=== PATIENT | female | born 1970 | race Caucasian/White ===

== ENCOUNTER 2016-06-18 06:00 | Day surgery (SDC) | payer BC ==
[~2016-06-18] VITALS: Ht 154.9 cm; Wt 50.5 kg
[~2016-06-18 06:00] MED LIST: CYAN100063 PO; LACT1CAP80 PO; LEVO50TA11 PO
--- OUTSIDE RECORDS SUMMARY | 2016-06-18 06:03 | XMS REPORT | Continuity of Care Document ---
Author Author [facility] Organization [facility] Address Unknown Phone Unavailable Care Team Providers Care Plodding Machine Operator Name Role Phone Helen Mortensen Primary Care Physician [phone] Source Comments Some departments are not documenting in the electronic medical record. If you do not see the information that you expected, contact Release of Information in the Health Information Management department at [phone] for further assistance in locating additional records.[facility] Active Allergies and Adverse Reactions Allergen Noted Date Severity Reactions Comments Levofloxacin 01/25/2016 Medium RASH, ITCHING Sudafed 01/25/2016 Medium RASH, ITCHING Sulfa (Sulfonamide 01/25/2016 Low STOMACH UPSET Antibiotics) Current Medications Prescription Sig. Disp. Refills Start End Date Status Date levothyroxine (SYNTHROID) Take 50 mcg by mouth Active 50 mcg tablet daily 30 minutes before breakfast. CYANOCOBALAMIN (VITAMIN Take by mouth. Active B-12) (VITAMIN B-12 PO) Active Problems Problem Noted Date Recurrent malignant neoplasm of cervix (HCC) 01/25/2016 Cervical cancer, FIGO stage IB1 (HCC) 01/25/2016 Acquired hypothyroidism 01/25/2016 Hearing loss 01/25/2016 Social History Tobacco Use Types Packs/Day Years Used Date Never Smoker Alcohol Use Drinks/Week oz/Week Comments Yes 1 Cans of 0.6 beer Last Filed Vital Signs Vital Sign Reading Time Taken Blood Pressure 132/77 01/25/2016 11:40 AM BIRD TRAPPER Pulse 81 01/25/2016 11:40 AM BIRD TRAPPER Temperature 36.6 C (97.8 F) 01/25/2016 11:40 AM BIRD TRAPPER Respiratory Rate 16 01/25/2016 11:39 AM BIRD TRAPPER Height 1.565 m (5' 1.61") 01/25/2016 11:40 AM BIRD TRAPPER Weight 52.6 kg (115 lb 15.4 oz) 01/25/2016 11:40 AM BIRD TRAPPER Body Mass Index 21.48 01/25/2016 11:40 AM BIRD TRAPPER Oxygen Saturation 100% 01/25/2016 11:40 AM BIRD TRAPPER Plan of Care Health Maintenance Due Date Last Done Comments Physical (Comprehensive) 1976 Exam Pertussis Vaccine 1980 Tetanus Vaccine 1986 Cervical Cancer Screening 1990 Breast Cancer Screening 2009 Influenza Vaccine 11/08/2016 Results from Last 3 Months Not on file
--- OUTSIDE RECORDS SUMMARY | 2016-06-18 06:04 | XMS REPORT | Continuity of Care Document ---
Author Author [facility] Organization [facility] Address Unknown Phone Unavailable Support Name Relationship Address Phone MONIQUE RINCON MD Caregiver [address] [place] [address] Unavailable MAKENNA ALFARO MD Caregiver [phone] [place] [address] Unavailable SURY SARMIENTO Next Of Kin [address] [place], [place] [id number] Insurance Providers Guarantor Jair Monson Address [address] [place] [address] Email [email or web address] Payer [facility] Policy Number [id number] Subscriber's Name Jair Monson Relationship 18 Self Group Number [id number] Effective Date 13 Problems Active Problems Medical Problem Onset Date Status Atypical chest pain Unknown Acute CHEST PAIN, UNSPECIFIED Unknown Acute Dyspnea Unknown Acute Heart murmur Unknown Acute Liver lesion, left lobe Unknown Acute Stress at work Unknown Acute Medications Current Home Medications Medication Dose Units Route Directions Days Qty Instructions Start Date Cyanocobalamin (Vitamin B-12) Unknown Strength Tablet 1 Tab Oral Daily 05/02/11 Levothyroxine Sodium 50 Mcg Tablet 1 Tab Oral Daily 03/05/15 Mth/Me Blue/Salicy/Na Phos/Hyo (Urogesic-Blue Tablet) 1 Tab Tablet 1 Tab Oral Four Times Daily as needed for Bladder Discomfort 5 Days 20 Tablet 12/19/15 Nitrofurantoin Monohyd/M-Cryst (Nitrofurantoin Benson-Mcr 100 Mg) 100 Mg Capsule 100 Mg Oral Bedtime 1 Capsule 12/19/15 Tramadol Hcl 50 Mg Tablet 50 Mg Oral Every 4 Hours for Pain 40 Tablet Take 1 tablet, by mouth, every 4 hours. 12/19/15 Social History Social History Problem Response Recorded Date/Time Onset Date Status Hx Substance Use No 12/19/2015 7:28am Not Applicable Not Applicable Hx Alcohol Use No 12/19/2015 7:28am Not Applicable Not Applicable Has the pt used tobacco in the last 12 months No 12/19/2015 7:28am Not Applicable Not Applicable Hospital Discharge Instructions Current inpatient/outpatient. Discharge instructions are currently unavailable. Plan of Care Current inpatient/outpatient. The plan of care is currently unavailable Functional Status No functional status results. Allergies, Adverse Reactions, Alerts Allergen Type Severity Reaction Status Last Updated pseudoephedrine HCl Allergy Severe HIVES Active 03/05/15 Sulfa (Sulfonamide Antibiotics) Adverse Reaction Intermediate NAUSEA Active 03/05/15 Levofloxacin Allergy Mild ITCHY, REDNESS AT IV SITE Active 12/19/15 Immunizations Query Response on File Recorded Date/Time Hx Influenza Vaccination No 12/19/15 7:28am Hx Pneumococcal Vaccination No 12/19/15 7:28am Hx Influenza Vaccination No 12/19/15 7:28am Influenza Vaccine Hx NONE 03/05/15 10:47am Vital Signs Acute Vital Signs Vital Response Date/Time Temperature (Fahrenheit) 97.3 deg F (96.8 - 99.1) 12/19/2015 10:54am Temperature (Calculated Celsius) 36.99509 degrees C (36.0 - 37.3) 12/19/2015 10:54am Temperature Source Temporal 12/19/2015 10:54am Pulse Rate (adult) 86 bpm (60 - 100) 12/19/2015 12:25pm Respiratory Rate 15 breaths/min (10 - 20) 12/19/2015 12:25pm O2 Sat by Pulse Oximetry 99 % (90 - 100) 12/19/2015 12:25pm Oxygen Delivery Method Room Air 12/19/2015 12:25pm Oxygen Flow Rate 6.00 L/min 12/19/2015 11:10am Blood Pressure 145/71 mm Hg 12/19/2015 12:25pm Blood Pressure Source Automatic Cuff 12/19/2015 12:25pm Height (Feet) 5 feet 12/19/2015 7:11am Height (Inches) 1.00 inches 12/19/2015 7:11am Weight (Kilograms) 52.500 kg 12/19/2015 7:11am Body Mass Index (BMI) 21.9 12/19/2015 7:11am Results Laboratory Results Test Name Result Units Flags Reference Collection Date/Time Result Date/ Time Comments Neutrophils % (Manual) 61.0 % 33-66 02/06/2016 12:04pm 02/06/2016 12: 33pm Lymphocytes % (Manual) 32.0 % 23-45 02/06/2016 12:04pm 02/06/2016 12: 33pm Monocytes % (Manual) 6.0 % 0-9.0 02/06/2016 12:04pm 02/06/2016 12:33pm Reactive Lymphocytes % 1.0 % H 0-0 02/06/2016 12:04pm 02/06/2016 12: 33pm Absolute Neutrophils (Manual) 2.7 T/MM3 1.8-7.7 02/06/2016 12:04pm 12:33pm Lymphocytes # (Manual) 1.4 T/MM3 1-4.8 02/06/2016 12:04pm 02/06/2016 12 :33pm Monocytes # (Manual) 0.3 T/MM3 0-0.8 02/06/2016 12:04pm 02/06/2016 12: 33pm Reactive Lymphocytes # 0.0 T/MM3 0-0 02/06/2016 12:04pm 02/06/2016 12: 33pm Red Cell Morphology Comment NORMAL 02/06/2016 12:04pm 02/06/2016 12 :33pm Total Bilirubin 0.30 MG/DL 0.20-1.30 02/06/2016 12:04pm 02/06/2016 12: 17pm Alkaline Phosphatase 51 U/L 38-126 02/06/2016 12:04pm 02/06/2016 12: 17pm Total Protein 7.7 G/DL 6.3-8.2 02/06/2016 12:04pm 02/06/2016 12:17pm Albumin 4.2 G/DL 3.5-5.0 02/06/2016 12:04pm 02/06/2016 12:17pm Globulin 3.5 G/DL 2.4-3.6 02/06/2016 12:04pm 02/06/2016 12:17pm Albumin/Globulin Ratio 1.2 RATIO 1.1-2.2 02/06/2016 12:04pm 02/06/2016 12:17pm Aspartate Amino Transf (AST/SGOT) 23 U/L 14-36 02/06/2016 12:04pm 02/05 12:17pm Alanine Aminotransferase (ALT/SGPT) 28 U/L 9-52 02/06/2016 12:04pm 12:17pm White Blood Count 4.6 T/MM3 4.5-11.0 03/05/2016 11:46am 03/05/2016 11: 57am Red Blood Count 3.53 M/MM3 L 4.00-5.20 03/05/2016 11:46am 03/05/2016 11: 57am Hemoglobin 11.5 GM/DL L 12-16 03/05/2016 11:46am 03/05/2016 11:57am Hematocrit 34.9 % L 36-46 03/05/2016 11:46am 03/05/2016 11:57am Mean Corpuscular Volume 98.9 UM3 80-100 03/05/2016 11:46am 03/05/2016 11:57am Mean Corpuscular Hemoglobin 32.6 UUG 26-34 03/05/2016 11:46am 2015 11:57am Mean Corpuscular Hemoglobin Concent 33.0 GM/DL 31-37 03/05/2016 11:46am 03/05/2016 11:57am RDW Standard Deviation 46.2 FL 36.9-50.2 03/05/2016 11:46am 03/05/2016 11:57am Platelet Count 176 T/MM3 130-400 03/05/2016 11:46am 03/05/2016 11:57am Mean Platelet Volume 9.2 UM3 L 9.4-12.4 03/05/2016 11:46am 03/05/2016 11 :57am Neutrophils (%) (Auto) 75.3 % H 33-66 03/05/2016 11:46am 03/05/2016 11: 57am Lymphocytes (%) (Auto) 9.2 % L 23-45 03/05/2016 11:46am 03/05/2016 11: 57am Monocytes (%) (Auto) 7.7 % 0-9.0 03/05/2016 11:46am 03/05/2016 11:57am Eosinophils (%) (Auto) 7.0 % H 0-4 03/05/2016 11:46am 03/05/2016 11: 57am Basophils (%) (Auto) 0.4 % 0-2 03/05/2016 11:46am 03/05/2016 11:57am Immature Granulocyte % (Auto) 0.4 % 0.0-0.5 03/05/2016 11:46am 2015 11:57am Absolute Neutrophils (auto) 3.4 T/MM3 1.8-7.7 03/05/2016 11:46am 2015 11:57am Absolute Lymphocytes (auto) 0.4 T/MM3 L 1-4.8 03/05/2016 11:46am 2015 11:57am Absolute Monocytes (auto) 0.4 T/MM3 0-0.8 03/05/2016 11:46am 2015 11:57am Absolute Eosinophils (auto) 0.3 T/MM3 0-0.5 03/05/2016 11:46am 2015 11:57am Absolute Basophils (auto) 0.0 T/MM3 0-0.2 03/05/2016 11:46am 2015 11:57am Absolute Immature Granulocyte (auto 0.02 T/MM3 0.00-0.03 03/05/2016 11: 46am 03/05/2016 11:57am Icterus Index < 2 0-7 03/05/2016 11:46am 03/05/2016 12:10pm Chemistry Specimen Hemolysis < 15 0-25 03/05/2016 11:46am 03/05/2016 12:10pm 0-25: Specimen Exhibited No Hemolysis. Turbidity < 20 0-20 03/05/2016 11:46am 03/05/2016 12:10pm Sodium Level 137 MEQ/L 134-144 03/05/2016 11:46am 03/05/2016 12:10pm Potassium Level 4.1 MEQ/L 3.6-5 03/05/2016 11:46am 03/05/2016 12:10pm Chloride Level 102 MEQ/L 98-107 03/05/2016 11:46am 03/05/2016 12:10pm Carbon Dioxide Level 27 MEQ/L 22-30 03/05/2016 11:46am 03/05/2016 12: 10pm Anion Gap 8 MEQ/L 5-15 03/05/2016 11:46am 03/05/2016 12:10pm Blood Urea Nitrogen 13.0 MG/DL 7-17 03/05/2016 11:46am 03/05/2016 12: 10pm Creatinine 0.9 MG/DL 0.7-1.2 03/05/2016 11:46am 03/05/2016 12:10pm BUN/Creatinine Ratio 14 RATIO 6-26 03/05/2016 11:46am 03/05/2016 12: 10pm Glomerular Filtration Rate Calc 67 03/05/2016 11:46am 03/05/2016 12 :10pm Glucose Level 83 MG/DL 65-110 03/05/2016 11:46am 03/05/2016 12:10pm Calculated Osmolality 263 MOSM/KG 261-280 03/05/2016 11:46am 2015 12:10pm Calcium Level 9.2 MG/DL 8.4-10.2 03/05/2016 11:46am 03/05/2016 12:10pm Magnesium Level 2.0 MG/DL 1.6-2.3 03/05/2016 11:46am 03/05/2016 12: 10pm Name: JAIR MONSON Unit #: [id number] : 1970 Sex: F Admit Date: Loc / Svc: VIVIANE Discharge Date: DIAGNOSTIC IMAGING [id number]: ITS.REASON: C53.0 Malignant neoplasm of endocervix PROCEDURE: CT PELVIS W/O CONTRAST: Encounter: Subsequent Comparison: CT pelvis with contrast dated February 13, 2016 Technique: Axial CT imaging through the pelvis was performed with rectal contrast. No IV contrast was utilized. Coronal and sagittal two-dimensional reformats. Findings: Good distention of the rectum with contrast. Contrast is seen within the distal descending and sigmoid colon as well without evidence of focal stricture or obvious mass. Moderate stool. Left-sided double-J stent is seen in the visualized left ureter extending into the bladder. The prior hydroureter has improved. Bladder appears thin walled and normal. Small bowel dilatation seen on the comparison study has resolved. No discrete adenopathy seen within the pelvis currently. There is still suggestion of abnormal soft tissue in the left pelvic and perirectal area posterior to the bladder along the left distal ureter but this appears to be improved and is difficult to precisely measure. Bone windows are unchanged. Impression: Improved ileus or resolved partial small bowel obstruction. Interval decrease in size of the ill-defined left lower pelvic mass. . Procedures Procedure Status Date Provider(s) CT ABD & PELV 1/> REGNS Completed 12/11/15"INFUSION, NORMAL SALINE SOLUTION , 250 CC" Completed 12/11/15"LOW OSMOLAR CONTRAST MATERIAL, 300-399 MG/ML IODINE C Completed ROUTINE VENIPUNCTURE Completed 12/19/15 CYSTOSCOPY AND TREATMENT Completed 12/19/15 RODDY PEREZ MD CYSTO/URETERO STRICTURE TX Completed 12/19/15 RODDY PEREZ MD CYSTOURETERO W/BIOPSY Completed 12/19/15 RODDY PEREZ MD CONTRST X-RAY URINARY TRACT Completed 12/19/15 COMPREHEN METABOLIC PANEL Completed 12/19/15 COMPLETE CBC W/AUTO DIFF WBC Completed 12/19/15"STENT, NON-CORONARY, TEMPORARY, WITHOUT DELIVERY SYST Completed "INJECTION, CEFAZOLIN SODIUM, 500 MG" Completed 12/19/15"INJECTION, GARAMYCIN, GENTAMICIN, UP TO 80 MG" Completed 12/19/15"INJECTION, KETOROLAC TROMETHAMINE, PER 15 MG" Completed 12/19/15"INJECTION, LEVOFLOXACIN, 250 MG" Completed 12/19/15"INJECTION, NALOXONE HYDROCHLORIDE, PER 1 MG" Completed 12/19/15"INJECTION, ONDANSETRON HYDROCHLORIDE, PER 1 MG" Completed 12/19/15 PROPOFOL INJ 500 MG/50ML Completed 12/19/15 PROPOFOL INJ 500 MG/50ML Completed 12/19/15 PROPOFOL INJ 500 MG/50ML Completed 12/19/15 PROPOFOL INJ 500 MG/50ML Completed 12/19/15"INJECTION, FENTANYL CITRATE, 0.1 MG" Completed 12/19/15"INJECTION, FENTANYL CITRATE, 0.1 MG" Completed 12/19/15"INFUSION, NORMAL SALINE SOLUTION , 250 CC" Completed 12/19/155% DEXTROSE/WATER (500 ML=1 UNIT) Completed 10/11/16 306395"RINGERS LACTATE INFUSION, UP TO 1000 CC" Completed 12/19/15 861776"LOW OSMOLAR CONTRAST MATERIAL, 300-399 MG/ML IODINE C Completed PET IMAGE W/CT SKULL-THIGH Completed 12/27/15 [id number]"FLUORODEOXYGLUCOSE F-18 FDG, DIAGNOSTIC, PER STUDY DO Completed COMPREHEN METABOLIC PANEL Completed 01/23/16 COMPLETE CBC W/AUTO DIFF WBC Completed 01/23/16 CAT SCAN FOLLOW-UP STUDY Completed 01/30/16 ROUTINE VENIPUNCTURE Completed 02/06/16 COMPREHEN METABOLIC PANEL Completed 02/06/16 BL SMEAR W/DIFF WBC COUNT Completed 02/06/16 COMPLETE CBC AUTOMATED Completed 02/06/16 ROUTINE VENIPUNCTURE Completed 02/13/16 CT PELVIS W/DYE Completed 02/13/16 METABOLIC PANEL TOTAL CA Completed 02/13/16 ASSAY OF MAGNESIUM Completed 02/13/16 COMPLETE CBC W/AUTO DIFF WBC Completed 02/13/16 026969"INFUSION, NORMAL SALINE SOLUTION , 250 CC" Completed 02/13/16 032028"LOW OSMOLAR CONTRAST MATERIAL, 300-399 MG/ML IODINE C Completed Encounters Encounter Location Arrival/Admit Date Discharge/Depart Date Attending Provider Discharged [facility] 03/05/16 11:35am 03/09/16 11: 43pm KALEIGH LEES MD Registered [facility] 02/27/16 11:24am MAKENNA ALFARO MD Registered [facility] 02/13/16 7:17am MAKENNA ALFARO MD Registered [facility] 02/06/16 11:48am KALEIGH LEES MD Registered [facility] 01/30/16 11:58am MAKENNA ALFARO MD Registered [facility] 01/23/16 11:23am KALEIGH LEES MD Registered [facility] 12/27/15 8:01am RODDY PEREZ MD Dep[facility]ed [facility] 12/19/15 7:00am 12/19/15 12 :47pm RODDY PEREZ MD Registered [facility] 12/11/15 4:12pm MONIQUE RINCON MD
--- OUTSIDE RECORDS SUMMARY | 2016-06-18 06:04 | XMS REPORT | Continuity of Care Document ---
Author Author [facility] Organization [facility] Address Unknown Phone Unavailable Support Name Relationship Address Phone MONIQUE RINCON MD Caregiver [address] [address] [address] [place] [address] Unavailable MAKENNA ALFARO MD Caregiver [address] [facility] [place] [address] Unavailable SURY SARMIENTO Next Of Kin [address] [place], [place] [phone] Insurance Providers Guarantor Jair Monson Address [address] [place] [address] Email Payer [facility] Policy Number [id number] Subscriber's Name Jair Monson Relationship 18 Self Group Number [id number] Effective Date 13 Problems Active Problems Medical [...] Days 20 Tablet 12/19/15 Nitrofurantoin Monohyd/M-Cryst (Nitrofurantoin White-Mcr 100 Mg) 100 Mg Capsule 100 Mg [...] tobacco in the last 12 months No 03/30/2016 12:08pm Not Applicable Not Applicable Hospital Discharge Instructions Current inpatient/outpatient. Discharge instructions are currently unavailable. Plan of Care Current inpatient/outpatient. The plan of care is currently unavailable Functional Status No functional status results. Allergies, Adverse Reactions, Alerts Allergen Type Severity Reaction Status Last Updated pseudoephedrine HCl Allergy Severe HIVES Active 03/30/16 Sulfa (Sulfonamide Antibiotics) Adverse Reaction Intermediate NAUSEA Active 03/30/16 Levofloxacin Allergy Mild ITCHY, REDNESS AT IV SITE Active 03/30/16 Immunizations Query Response on File Recorded Date/Time Hx Influenza Vaccination Y fall 201503/30/16 12:08pm Hx Pneumococcal Vaccination No 03/30/16 12:08pm Hx Influenza Vaccination Y fall 201503/30/16 12:08pm Influenza Vaccine Hx NONE 03/05/15 10:47am Vital Signs Acute Vital Signs Vital Response Date/Time Temperature (Fahrenheit) 97.7 deg F (96.8 - 99.1) 03/31/2016 2:17pm Temperature (Calculated Celsius) 36.11030 degrees C (36.0 - 37.3) 03/31/2016 2:17pm Pulse Rate (adult) 88 bpm (60 - 100) 03/31/2016 2:17pm Respiratory Rate 20 breaths/min (10 - 20) 03/31/2016 2:17pm O2 Sat by Pulse Oximetry 100 % (90 - 100) 03/31/2016 2:17pm Oxygen Delivery Method Room Air 03/31/2016 2:17pm Blood Pressure 105/69 mm Hg 03/31/2016 2:17pm Blood Pressure Source Automatic Cuff 03/31/2016 2:17pm Height (Feet) 5 feet 03/30/2016 12:01pm Height (Inches) 5.00 inches 03/30/2016 12:01pm Weight (Kilograms) 50.000 kg 03/30/2016 12:01pm Body Mass Index (BMI) 18.3 03/30/2016 12:01pm Results Laboratory Results Test Name Result Units Flags Reference Collection Date/Time Result Date/ Time Comments White Blood Count 3.1 T/MM3 L 4.5-11.0 05/14/2016 11:40am 05/14/2016 11: 45am Red Blood Count 3.25 M/MM3 L 4.00-5.20 05/14/2016 11:40am 05/14/2016 11: 45am Hemoglobin 11.3 GM/DL L 12-16 05/14/2016 11:40am 05/14/2016 11:45am Hematocrit 34.1 % L 36-46 05/14/2016 11:40am 05/14/2016 11:45am Mean Corpuscular Volume 104.9 UM3 H 80-100 05/14/2016 11:40am 2016 11:45am Mean Corpuscular Hemoglobin 34.8 UUG H 26-34 05/14/2016 11:40am 2016 11:45am Mean Corpuscular Hemoglobin Concent 33.1 GM/DL 31-37 05/14/2016 11:40am 05/14/2016 11:45am RDW Standard Deviation 52.4 FL H 36.9-50.2 05/14/2016 11:40am 2016 11:45am Platelet Count 229 T/MM3 130-400 05/14/2016 11:40am 05/14/2016 11:45am Mean Platelet Volume 9.4 UM3 9.4-12.4 05/14/2016 11:40am 05/14/2016 11: 45am Neutrophils (%) (Auto) 55.8 % 33-66 05/14/2016 11:40am 05/14/2016 11: 45am Lymphocytes (%) (Auto) 22.9 % L 23-45 05/14/2016 11:40am 05/14/2016 11: 45am Monocytes (%) (Auto) 12.6 % H 0-9.0 05/14/2016 11:40am 05/14/2016 11: 45am Eosinophils (%) (Auto) 7.4 % H 0-4 05/14/2016 11:40am 05/14/2016 11: 45am Basophils (%) (Auto) 1.0 % 0-2 05/14/2016 11:40am 05/14/2016 11:45am Immature Granulocyte % (Auto) 0.3 % 0.0-0.5 05/14/2016 11:40am 2016 11:45am Absolute Neutrophils (auto) 1.7 T/MM3 L 1.8-7.7 05/14/2016 11:40am 05/14 11:45am Absolute Lymphocytes (auto) 0.7 T/MM3 L 1-4.8 05/14/2016 11:40am 2016 11:45am Absolute Monocytes (auto) 0.4 T/MM3 0-0.8 05/14/2016 11:40am 2016 11:45am Absolute Eosinophils (auto) 0.2 T/MM3 0-0.5 05/14/2016 11:40am 2016 11:45am Absolute Basophils (auto) 0.0 T/MM3 0-0.2 05/14/2016 11:40am 2016 11:45am Absolute Immature Granulocyte (auto 0.01 T/MM3 0.00-0.03 05/14/2016 11: 40am 05/14/2016 11:45am Neutrophils % (Manual) 37.0 % 33-66 04/03/2016 11:22am 04/03/2016 11: 48am Band Neutrophils % 38.0 % H 0-6 04/03/2016 11:am 04/03/2016 11:48am Lymphocytes % (Manual) 19.0 % L 23-45 04/03/2016 11:am 04/03/2016 11: 48am Monocytes % (Manual) 3.0 % 0-9.0 04/03/2016 11:am 04/03/2016 11:48am Eosinophils % (Manual) 3.0 % 0-4 04/03/2016 11:am 04/03/2016 11:48am Band Neutrophils # 2.8 T/MM3 04/03/2016 11:am 04/03/2016 11:48am Absolute Neutrophils (Manual) 2.7 T/MM3 1.8-7.7 04/03/2016 11:22am 11:48am Lymphocytes # (Manual) 1.4 T/MM3 1-4.8 04/03/2016 11:22am 04/03/2016 11 :48am Monocytes # (Manual) 0.2 T/MM3 0-0.8 04/03/2016 11:22am 04/03/2016 11: 48am Eosinophils # (Manual) 0.2 T/MM3 0-0.5 04/03/2016 11:22am 04/03/2016 11 :48am Red Cell Morphology Comment NORMAL 04/03/2016 11:22am 04/03/2016 11 :48am Icterus Index < 2 0-7 03/26/2016 11:3703/26/2016 12:14pm Chemistry Specimen Hemolysis < 15 0-25 03/26/2016 11:3703/26/2016 12:14pm 0-25: Specimen Exhibited No Hemolysis. Turbidity < 20 0-20 03/26/2016 11:37am 03/26/2016 12:14pm Sodium Level 137 MEQ/L 134-144 03/26/2016 11:3703/26/2016 12:14pm Potassium Level 4.3 MEQ/L 3.6-5 03/26/2016 11:37am 03/26/2016 12:14pm Chloride Level 99 MEQ/L 98-107 03/26/2016 11:37am 03/26/2016 12:14pm Carbon Dioxide Level 27 MEQ/L 22-30 03/26/2016 11:37am 03/26/2016 12: 14pm Anion Gap 11 MEQ/L 5-15 03/26/2016 11:37am 03/26/2016 12:14pm Blood Urea Nitrogen 14.0 MG/DL 7-17 03/26/2016 11:37am 03/26/2016 12: 14pm Creatinine 0.9 MG/DL 0.7-1.2 03/26/2016 11:37am 03/26/2016 12:14pm BUN/Creatinine Ratio 16 RATIO 6-26 03/26/2016 11:37am 03/26/2016 12: 14pm Glomerular Filtration Rate Calc 67 03/26/2016 11:3703/26/2016 12 :14pm Glucose Level 81 MG/DL 65-110 03/26/2016 11:3703/26/2016 12:14pm Calculated Osmolality 264 MOSM/KG 261-280 03/26/2016 11:37am 2016 12:14pm Calcium Level 9.2 MG/DL 8.4-10.2 03/26/2016 11:37am 03/26/2016 12:14pm Total Bilirubin 0.40 MG/DL 0.20-1.30 03/19/2016 11:56am 03/19/2016 12: 12pm Alkaline Phosphatase 59 U/L 38-126 03/19/2016 11:56am 03/19/2016 12: 12pm Total Protein 7.1 G/DL 6.3-8.2 03/19/2016 11:56am 03/19/2016 12:12pm Albumin 4.0 G/DL 3.5-5.0 03/19/2016 11:56am 03/19/2016 12:12pm Globulin 3.1 G/DL 2.4-3.6 03/19/2016 11:56am 03/19/2016 12:12pm Albumin/Globulin Ratio 1.3 RATIO 1.1-2.2 03/19/2016 11:56am 03/19/2016 12:12pm Aspartate Amino Transf (AST/SGOT) 24 U/L 14-36 03/19/2016 11:56am 03/19 12:12pm Alanine Aminotransferase (ALT/SGPT) 25 U/L 9-52 03/19/2016 11:56am 12/2016 12:12pm Magnesium Level 2.1 MG/DL 1.6-2.3 05/14/2016 11:40am 05/14/2016 11: 54am Procedures Procedure Status Date Provider(s) Routine venipuncture Completed 02/20/16 Metabolic panel total ca Completed 02/20/16 Assay of magnesium Completed 02/20/16 Complete cbc w/auto diff wbc Completed 02/20/16 Routine venipuncture Completed 02/20/16 Metabolic panel total ca Completed 02/20/16 Assay of magnesium Completed 02/20/16 Complete cbc w/auto diff wbc Completed 02/20/16 Routine venipuncture Completed 02/20/16 Metabolic panel total ca Completed 02/20/16 Assay of magnesium Completed 02/20/16 Complete cbc w/auto diff wbc Completed 02/20/16 Ct pelvis w/o dye Completed 02/27/16 Cat scan follow-up study Completed 03/28/16 Ct pelvis w/dye Completed 04/30/16 386952"INFUSION, NORMAL SALINE SOLUTION , 250 CC" Completed 04/30/16 136387"LOW OSMOLAR CONTRAST MATERIAL, 300-399 MG/ML IODINE C Completed 091829"LOW OSMOLAR CONTRAST MATERIAL, 300-399 MG/ML IODINE C Completed Breast tomosynthesis bi Completed 05/08/16 328821"SCREENING MAMMOGRAPHY, PRODUCING DIRECT DIGITAL IMAGE Completed Encounters Encounter Location Arrival/Admit Date Discharge/Depart Date Attending Provider Registered [facility] 05/14/16 11:37am KALEIGH LEES MD Registered [facility] 05/14/16 11:26am MAKENNA ALFARO MD Registered [facility] 05/08/16 11:24am HELENE PHILLIPS MD Registered [facility] 04/30/16 10:31am MAKENNA ALFARO MD Discharged [facility] 03/31/16 8:45am 05/15/16 11:59pm KALEIGH LEES MD Registered [facility] 03/28/16 11:21am MAKENNA ALFARO MD Registered [facility] 02/27/16 11:24am MAKENNA ALFARO MD Discharged [facility] 02/20/16 11:33am 03/09/16 11: 43pm KALEIGH LEES MD
--- OUTSIDE RECORDS SUMMARY | 2016-06-18 06:04 | XMS REPORT | Continuity of Care Document ---
Author Author [facility] Organization [facility] Address Unknown Phone Unavailable Support Name Relationship Address Phone RODDY DE LA CRUZ MD Caregiver [address] [place] [address] Unavailable MONIQUE RINCON MD Caregiver [address] [place] [address] Unavailable SURY SARMIENTO Next Of Kin [address] [place] [address] Insurance Providers Guarantor Jair Monson Address [address] [place] [address] Email [email or web address] Payer [facility] Policy Number [id number] Subscriber's Name Jair Monson Relationship 18 Self Group Number [id number] Effective Date 13 Advance Directives Directive Response Recorded Date/Time Dr Black Resuscitation Status Full Code 12/18/15 1:55pm Resuscitation Documents on File Yes 12/19/15 7:46am DPOA for Healthcare Only Yes 12/19/15 7:46am Living Will No 12/19/15 7:46am Advanced Directive or Resuscitation Comments FULL CODE 12/19/15 7:46am Problems Active Problems Medical Problem Onset Date [...] Bladder Discomfort 5 Days 20 Tablet 12/19/15 Tramadol Hcl 50 Mg Tablet 50 Mg Oral Every 4 Hours for Pain 40 Tablet Take 1 tablet, by mouth, every 4 hours. 12/19/15 Social History Social History Problem Response Recorded Date/Time Onset Date Status Reason for Hospitalization cystoscopy with possible stent insertion 2015 11:44am Not Applicable Not Applicable Chewing Tobacco Status No 12/19/2015 7:28am Not Applicable Not Applicable Hx Substance Use No 12/19/2015 7:28am Not Applicable Not Applicable Hx Alcohol Use No 12/19/2015 7:28am Not Applicable Not Applicable Has the pt used tobacco in the last 12 months No 12/19/2015 7:28am Not Applicable Not Applicable Query Response Start Date Stop Date Smoking Status Never smoker Hospital Discharge Instructions Instructions: Care Instructions: I was in the hospital because (patient own words): CYSTOSCOPY Discharge Diet: regular Discharge Activity: as Tolerated Follow Up Appointments: Call for appointment to be seen on 12/22/2015 in [facility] office. Pending Lab / Results: Will review at f/u apt Expected Signs/Symptoms: Increased urgency and frequency to void, burning on urination, occassional blood in urine and pain in the left flank when straining and/or urinating. Notify Physician If: fever >100.5 During Business Hours:: Please call the physician's office After Business Hours:: Please call [phone] and have the compound machine operator page the physician. Pain Management/Treatment: ibuprofen, tylenol and/or tramadol as needed Wound/Incision Care: NA Condition at time of discharge: Good Plan of Care Discharge Date 12/19/15 12:47pm Instructions/Education Provided [facility] Prescriptions See Medication Section Functional Status No functional status results. Allergies, [...] - 99.1) 12/19/2015 10:54am Temperature (Calculated Celsius) 36.92138 degrees C (36.0 - 37.3) 12/19/2015 10:54am [...] Result Date/ Time Comments White Blood Count 5.2 T/MM3 4.5-11.0 12/19/2015 7:4212/19/2015 8: 17am Red Blood Count 3.86 M/MM3 L 4.00-5.20 12/19/2015 7:4212/19/2015 8: 17am Hemoglobin 12.3 GM/DL 12-16 12/19/2015 7:4212/19/2015 8:17am Hematocrit 37.9 % 36-46 12/19/2015 7:4212/19/2015 8:17am Mean Corpuscular Volume 98.2 UM3 80-100 12/19/2015 7:4212/19/2015 8: 17am Mean Corpuscular Hemoglobin 31.9 UUG 26-34 12/19/2015 7:422015 8:17am Mean Corpuscular Hemoglobin Concent 32.5 GM/DL 31-37 12/19/2015 7:4212/19/2015 8:17am RDW Standard Deviation 45.3 FL 36.9-50.2 12/19/2015 7:4212/19/2015 8 :17am Platelet Count 230 T/MM3 130-400 12/19/2015 7:42am 12/19/2015 8:17am Mean Platelet Volume 10.8 UM3 9.4-12.4 12/19/2015 7:42am 12/19/2015 8: 17am Neutrophils (%) (Auto) 57.4 % 33-66 12/19/2015 7:42am 12/19/2015 8: 17am Lymphocytes (%) (Auto) 31.7 % 23-45 12/19/2015 7:42am 12/19/2015 8: 17am Monocytes (%) (Auto) 8.3 % 0-9.0 12/19/2015 7:42am 12/19/2015 8:17am Eosinophils (%) (Auto) 1.4 % 0-4 12/19/2015 7:4212/19/2015 8:17am Basophils (%) (Auto) 1.0 % 0-2 12/19/2015 7:42am 12/19/2015 8:17am Immature Granulocyte % (Auto) 0.2 % 0.0-0.5 12/19/2015 7:42am 2015 8:17am Absolute Neutrophils (auto) 3.0 T/MM3 1.8-7.7 12/19/2015 7:42am 2015 8:17am Absolute Lymphocytes (auto) 1.6 T/MM3 1-4.8 12/19/2015 7:42am 2015 8:17am Absolute Monocytes (auto) 0.4 T/MM3 0-0.8 12/19/2015 7:42am 12/19/2015 8:17am Absolute Eosinophils (auto) 0.1 T/MM3 0-0.5 12/19/2015 7:42am 2015 8:17am Absolute Basophils (auto) 0.1 T/MM3 0-0.2 12/19/2015 7:4212/19/2015 8:17am Absolute Immature Granulocyte (auto 0.01 T/MM3 0.00-0.03 12/19/2015 7: 42am 12/19/2015 8:17am Icterus Index < 2 0-7 12/19/2015 7:42am 12/19/2015 8:28am Chemistry Specimen Hemolysis 35 H 0-25 12/19/2015 7:42am 12/19/2015 8: 28am 26-70: Specimen Exhibited Slight Hemolysis - can falsely elevate K (Potassium) and Urine Protein. Turbidity < 20 0-20 12/19/2015 7:42am 12/19/2015 8:28am Sodium Level 141 MEQ/L 134-144 12/19/2015 7:4212/19/2015 8:28am Potassium Level 4.3 MEQ/L 3.6-5 12/19/2015 7:42am 12/19/2015 8:28am Chloride Level 104 MEQ/L 98-107 12/19/2015 7:4212/19/2015 8:28am Carbon Dioxide Level 27 MEQ/L 22-30 12/19/2015 7:42am 12/19/2015 8: 28am Anion Gap 10 MEQ/L 5-15 12/19/2015 7:42am 12/19/2015 8:28am Blood Urea Nitrogen 19.0 MG/DL H 7-17 12/19/2015 7:42am 12/19/2015 8: 28am Creatinine 1.1 MG/DL 0.7-1.2 12/19/2015 7:4212/19/2015 8:28am BUN/Creatinine Ratio 17 RATIO 6-26 12/19/2015 7:4212/19/2015 8:28am Glomerular Filtration Rate Calc 53 12/19/2015 7:4212/19/2015 8: 28am Glucose Level 91 MG/DL 65-110 12/19/2015 7:4212/19/2015 8:28am Calculated Osmolality 273 MOSM/KG 261-280 12/19/2015 7:4212/19/2015 8:28am Calcium Level 9.1 MG/DL 8.4-10.2 12/19/2015 7:4212/19/2015 8:28am Total Bilirubin 0.60 MG/DL 0.20-1.30 12/19/2015 7:4212/19/2015 8: 28am Alkaline Phosphatase 50 U/L 38-126 12/19/2015 7:4212/19/2015 8:28am Total Protein 7.5 G/DL 6.3-8.2 12/19/2015 7:42am 12/19/2015 8:28am Albumin 4.1 G/DL 3.5-5.0 12/19/2015 7:42am 12/19/2015 8:28am Globulin 3.4 G/DL 2.4-3.6 12/19/2015 7:42am 12/19/2015 8:28am Albumin/Globulin Ratio 1.2 RATIO 1.1-2.2 12/19/2015 7:42am 12/19/2015 8 :28am Aspartate Amino Transf (AST/SGOT) 25 U/L 14-36 12/19/2015 7:42am 2015 8:28am Alanine Aminotransferase (ALT/SGPT) 17 U/L 9-52 12/19/2015 7:42am 12/18 8:28am Name: JAIR MONSON Unit #: [id number] : 1970 Sex: F Admit Date: Loc / Svc: SCU Discharge Date: DIAGNOSTIC IMAGING REPORT Report #: [id number] [facility] Indication: ITS.REASON: ANMOL RETROGRADE, abnormal recent CT PROCEDURE: RF RETROGRADE PYELOGRAM BILAT.: Encounter: Initial Comparison: Renal CT dated December 11, 2015 Findings: 24 fluoroscopic spot images are submitted for interpretation. Images show retrograde injection of contrast into the left ureter. This shows a severely dilated distal ureter near the bladder with evidence of a tight stricture in the proximal to midportion with slightly irregular margins with tortuosity in this location as well. A catheter was able to be advanced through this area of narrowing. No extravasation of contrast identified. Retrograde injection of contrast was then performed into the right ureter which shows a normal course and caliber. Mild blunting of the right renal calyces. An angioplasty device is deployed in the area of the left distal ureteral stricture followed by placement of a left-sided double-J stent. Impression: Evidence of left distal ureteral partial obstruction and a proximal ureteral stricture. Findings were discussed with Dr. De La Cruz in the procedure room at the time of the exam. Fluoroscopy time is five minutes and six seconds. Fluoroscopy dose is 4970 mRad. . Procedures Procedure Status Date Provider(s) Cystoscopic insertion of ureteral stent Completed 12/19/15 RODDY DE LA CRUZ MD Encounters Encounter Location Arrival/Admit Date Discharge/Depart Date Attending Provider Departed [facility] 12/19/15 7:00am 12/19/15 12 :47pm RODDY DE LA CRUZ MD Registered [facility] 12/11/15 4:12pm MONIQUE RINCON MD
[2016-06-18 06:26] VITALS: Ht 154.9 cm; Wt 50.5 kg
[2016-06-18 06:27] VITALS: BP 121/78; PULSE 81; RESP 13; TEMP 98.1; O2SAT 100
[2016-06-18 06:38] LABS: BASOPHILS % (AUTO) 0.4 % (0-2); EOSINOPHILS # (AUTO) 0.2 T/MM3 (0-0.5); EOSINOPHILS % (AUTO) 3.2 % (0-4); HCT - HEMATOCRIT 34.4 % (36-46); HGB - HEMOGLOBIN 11.1 GM/DL (12-16); IMMATURE GRANULOCYTE # (AUTO) 0.02 T/MM3 (0.00-0.03); IMMATURE GRANULOCYTE % (AUTO) 0.4 % (0.0-0.5); LYMPHOCYTES # (AUTO) 0.7 T/MM3 (1-4.8); LYMPHOCYTES % (AUTO) 15.1 % (23-45); MEAN CORPUSCULAR HGB CONC(MCHC 32.3 GM/DL (31-37); MEAN CORPUSCULAR VOLUME 105.5 UM3 (80-100); MEAN PLATELET VOLUME 9.6 UM3 (9.4-12.4); MONOCYTES # (AUTO) 0.4 T/MM3 (0-0.8); MONOCYTES % (AUTO) 8.7 % (0-9.0); NEUTROPHILS #(AUTO)-ABSOLUTE 3.4 T/MM3 (1.8-7.7); NEUTROPHILS % (AUTO) 72.2 % (33-66); RED BLOOD COUNT 3.26 M/MM3 (4.00-5.20); WBC - WHITE BLOOD COUNT 4.7 T/MM3 (4.5-11.0)
[2016-06-18 06:47] LABS: ALBUMIN 3.9 G/DL (3.5-5.0); ALBUMIN/GLOBULIN RATIO 1.2 RATIO (1.1-2.2); ALKALINE PHOSPHATASE 65 U/L (38-126); ALT (SGPT) 28 U/L (9-52); ANION GAP 12 MEQ/L (5-15); AST (SGOT) 26 U/L (14-36); BUN/CREATININE RATIO 12 RATIO (6-26); CALCIUM 9.1 MG/DL (8.4-10.2); CHLORIDE 106 MEQ/L (98-107); CO2 - CARBON DIOXIDE 28 MEQ/L (22-30); GLOMERULAR FILTRATION RATE 59; GLUCOSE 90 MG/DL (65-110); POTASSIUM 3.6 MEQ/L (3.6-5); SODIUM 146 MEQ/L (134-144); TOTAL PROTEIN 7.2 G/DL (6.3-8.2)
--- NOTE | 2016-06-18 06:47 | ANESPREOP ---
Anesthesia Record Date and Time DATE: 06/18/16 TIME: 06:45 Proposed Surgical Procedure CYSTOSCOPY, STENT REMOVAL AND POSS. URETERAL BX Allergies: Coded Allergies: pseudoephedrine HCl (Verified Allergy, Severe, HIVES, 03/30/16) levofloxacin (Verified Allergy, Mild, ITCHY, REDNESS AT IV SITE, 03/30/16) Sulfa (Sulfonamide Antibiotics) (Verified Adverse Reaction, Intermediate, NAUSEA, 03/30/16) Ht/Wt/BMI Height: 5 ' 1.00 " Weight: 50.500 kg BMI: 21.0 kg/m2 Vital Signs Date Time Temp Pulse Resp B/P Pulse Ox O2 Delivery O2 Flow Rate FiO2 06/18/16 06:27 98.1 81 13 121/78 100 Room Air Medications Inpatient Medications Current Medications Medications (Trade) Dose Ordered Sig/Tori Start Time Stop Time Status Last Admin Dose Admin Lactated Ringer's (Lactated Ringers) 1,000 ml @ 30 mls/hr Q24H 06/18/16 07:00 Cyanocobalamin (Vitamin B-12) Unknown Strength Tablet, 1 TAB PO DAILY, (Reported ) Lactobacillus Combo No.10 (Probiotic) 1 Each Capsule, 1 CAP PO DAILY, (Reported) Levothyroxine Sodium (Levothyroxine Sodium) 50 Mcg Tablet, 1 TAB PO DAILY, ( Reported) Currently on Beta Seven: No Medical/Surgical History Anesthesia PMH: Reports: *Angina (HX OF-STRESS RELATED LAST WAS FEB 2015; since resolved), Cancer (HX OF CERVICAL), Reflux (no symptoms this am per pt), Thyroid Disease (THYROID NODULE) Smoking Status: Never smoker Use Chewing Tobacco?: No Second Hand Exposure: No Substance Use Type: does not use Alcohol Intake: rarely HX of Last Menstrual Period: 2000-. Past Surgical History Orthopedic Surgeries: Abdominal Surgeries: No Genitourinary Surgeries: Yes - LITHO (NO STONES) Cardiac Surgeries: No Endocrine Surgeries: Reproductive Surgeries: Yes - RAVH; COLPOSCOPY; ENDOMETRIAL BX;REMOVAL CVX CA, DX LAP Neurological Surgeries: Ear Surgeries: Nose Surgeries: Throat Surgeries: Other Surgeries: Yes - C-SCOPE,EGD'S Anesthesia Adverse Reactions: FOUND nausea and vomiting (TIVA with last cysto- denies N/V) Pertinent Findings Laboratory Tests 06/18/16 06:31 EKG Rhythm: Sinus Rhythm Physical Exam Respiratory: Bilat breath sounds equal, Lungs clear Cardiovascular: FOUND Regular rate, rhythm Airway Assessment Mallampati Score: I TMD: 3 Fingerbreadths Neck Extension: Good Overall Assessment: No Airway Concerns ASA: 2 Plan Anesthesia Plan: TIVA Discussion Discussed risks/options/alternatives of anesthesia and questions answered. Patient consents. Nursing pain assessment noted. Attestation Statement Prior to the delivery of any anesthetic medication, I examined the patient, developed the plan, obtained the patient's consent and discussed the risk and benefits of the procedure with the patient/guardian. SALONI MCCRAY Jun 18, 2016 06:47
[2016-06-18] MEDS ORDERED: IOHEXOL 300 MG/ML 50ml INJECTION ONE (06:57)
[2016-06-18] MEDS ORDERED: GENTAMICIN 80 MG/2 ML INJECTION ONE (06:57)
[2016-06-18] MEDS ORDERED: PROPOFOL 500mg 50 ML IV ONE (06:59)
[2016-06-18] MEDS ORDERED: LR 1,000 ML IV SCH (07:00)
[2016-06-18] MEDS ORDERED: LIDOCAINE 1% (10mg/ml) 2ml SDV INJ ONE (07:00)
[2016-06-18] MEDS ORDERED: FENTANYL 100mcg/2ml INJECTION ONE (07:02)
[2016-06-18] MEDS ORDERED: ONDANSETRON 4mg/2ml INJECTION ONE (07:03)
[2016-06-18] MEDS ORDERED: PROPOFOL 200mg 20 ML IV ONE (07:07)
[2016-06-18] MEDS ORDERED: DOCU-168 PO (07:10)
[2016-06-18] MEDS ORDERED: CEFAZOLIN 1 GRAM INJECTION IV ONE (07:30)
[2016-06-18 07:57] VITALS: BP 127/78; PULSE 84; RESP 12; TEMP 97.1; O2SAT 97
[2016-06-18] MEDS ORDERED: NORMAL SALINE 1,000 ML IV SCH (07:57)
[2016-06-18] MEDS ORDERED: MORPHINE SULFATE 4 MG SYRINGE IV PRN (08:00)
[2016-06-18] MEDS ORDERED: ONDANSETRON 4mg/2ml INJECTION IV PRN (08:00)
[2016-06-18] MEDS ORDERED: PHENAZOPYRIDINE 95 MG TABLET PO PRN (08:00)
[2016-06-18] MEDS ORDERED: HYDROCODONE/APAP 5 mg/325 mg TABLET PO PRN (08:00)
[2016-06-18] MEDS ORDERED: KETOROLAC 15mg/ml INJECTION IV PRN (08:00)
[2016-06-18] MEDS ORDERED: CEPH500C2 PO (08:03)
[2016-06-18 08:11] VITALS: BP 107/65; PULSE 70; RESP 11; O2SAT 100
[2016-06-18 08:33] VITALS: BP 113/68; PULSE 80; RESP 12; O2SAT 100
--- NOTE | 2016-06-18 08:38 | ANESPO ---
Post-Op Note Date 06/18/16 Time: 08:37 Status Pt Participated in Evaluation: Pt participated in person Vital Signs Date Time Temp Pulse Resp B/P Pulse Ox O2 Delivery O2 Flow Rate FiO2 06/18/16 08:33 80 12 113/68 100 Room Air 06/18/16 07:57 97.1 Respiratory Function: Airway patent, Regular respirations Cardiovascular Function: Regular pulse Telemetry Pattern: sr Mental Status: Alert/oriented Pain Level Intensity: 0 Hydration: Taking po fluids Complications during Recovery None apparent Follow-Up Instructions Instructions Per Surgeon MATTHEW KILLIAN CRNA Jun 18, 2016 08:38
[2016-06-18 08:53] VITALS: BP 112/69; PULSE 78; RESP 18; O2SAT 100
--- NOTE | 2016-06-18 08:59 | DI ---
Indication: ITS.REASON: LT STENT REMOVAL AND PLACEMENT PROCEDURE: RF KUB: Encounter: Initial Comparison: None Findings: Four fluoroscopic spot images are submitted for interpretation. Images show exchange of a left-sided double-J stent which projects in appropriate position. Impression: Fluoroscopy as above. Fluoroscopy time is 65.5 seconds. Fluoroscopy dose is 1180 mRad. .
[2016-06-18] MEDS ORDERED: CEPHALEXIN 500 MG CAPSULE PO SCH (09:00)
[2016-06-18 09:19] VITALS: BP 117/73; PULSE 68; RESP 18; TEMP 97.2; O2SAT 100
--- NOTE | 2016-06-18 14:20 | OPNOTEF ---
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 POSTOPERATIVE DIAGNOSIS Retained left ureteral stent and left ureteral obstruction with recurrent endocervical carcinoma with ureteral stricture. OPERATION PERFORMED Cystoscopy with removal of the ureteral stent and ureteroscopy with dilation of the ureteral stricture and insertion of new ureteral stent, 7 Australian x 22 cm, under fluoroscopy. SURGEON Bridger De La Cruz MD ANESTHESIA TIVA INDICATION Mrs. So is a 46-year-old woman with recurrent endocervical carcinoma following hysterectomy. She initially presented several months ago with hydronephrosis and obstructed ureter from the recurrent endocervical cancer. At the time ureter was dilated ureteroscopically and stent was inserted. The patient comes in today to have the stent removed and possible reinsertion and inspection of the ureter ureteroscopically. She has received chemotherapy for the recurrent endocervical carcinoma. DESCRIPTION OF PROCEDURE The patient was taken to the cystoscopy suite and under intravenous anesthesia she was placed in dorsal lithotomy position and prepped and draped in the usual fashion for a cystoscopic procedure. Fluoroscopic wellness spa manager film was taken in the abdomen on the left side showing the stent to be in good position. A 21 Australian rigid cystoscope was inserted into the bladder and stent was visualized from the left ureteral orifice and it was grasped with alligator forceps and brought to the urethral meatus. There was encrustation of the stent on the portion that was exposed in the bladder. The distal curved portion of the stent was removed with scissors. We then fed the 0.035 gauge guidewire into the lumen of the stent and advanced into the renal pelvis under fluoroscopic guidance and the stent was removed over the guidewire. Next, ureteroscope was inserted over the guidewire. Rigid 7 Australian scope was used. It was inserted into the ureteral orifice and advanced until we saw very tight obstruction. It had a somewhat pedunculated polypoid-like tissue distal to the very tight stricture, but we were not able to get by with the ureteroscope even under direct vision over the guidewire. Therefore, the 15-Australian ureteral balloon dilator was fed over the guidewire and the entire distal ureter and ureteral orifice dilated to 20 atmospheric pressure. High pressure was required to dilate the obstructing portion of the ureter seen by "waisting" of the balloon before it dilated. Once it was fully dilated, the balloon was removed. Ureteroscope was able to be advanced into the ureter and past this dilated portion and proximal ureter. No other abnormality was found. Ureteroscope was then backed out and cystocope was back-loaded over the guidewire. The 7 Australian x 22 cm double pigtail stent was loaded onto the guidewire and under fluoroscopic guidance placed into the left renal collecting system. Stent position was confirmed fluoroscopically and also cystoscopically. Bladder was emptied out and the cystoscope removed. The patient was taken to the recovery area in stable condition. YESSENIA
== END 2016-06-18 09:26 | disposition home or self-care (01) ==
LOC: SCU 06:00
PROVIDERS: ATTEND Specialist
DX: Z46.6 Encounter for fitting and adjustment of urinary device (principal); N13.5 Crossing vessel and stricture of ureter without hydronephrosis; C53.0 Malignant neoplasm of endocervix; Z90.710 Acquired absence of both cervix and uterus
CPT/HCPCS: 36415; 52332; 52344; 74000; 76000; 80053; 85025; C2625; J0690; J1580; J2405; J2704; J3010; J7120; Q9967

== ENCOUNTER → 2016-07-02 | Outpatient (CLI) | payer BC ==
[~2016-07-02] MED LIST changes: +CEPH500C2 PO; +DOCU-168 PO; +IOHEXOL 300 MG/ML 75ml INJECTION ONE; +NORMAL SALINE 100 ML ONE; +SALINE FLUSH 10ml SYRINGE ONE
--- NOTE | 2016-07-02 09:52 | DI ---
Indication: ITS.REASON: C53.0 Malignant neoplasm of endocervix PROCEDURE: CT CHEST/ABD/PELVIS WC: Encounter: Subsequent Comparison: CT pelvis dated April 30, 2016 and PET/CT dated December 27, [address] angiogram of the chest dated March 05, [address] dated December 11, 2015 Technique: Axial CT images were performed through the chest, abdomen and pelvis after the administration of intravenous contrast. Coronal and sagittal two-dimensional reformats. Automated Exposure Control and Iterative Reconstruction dose reducing techniques were utilized. Contrast: Omnipaque 300 67 mL Findings: Chest: The lungs are clear. No pneumothorax, pleural effusion or consolidation. No worrisome pulmonary nodule or mass. The central airways are patent. Thyroid gland is normal. No axillary or mediastinal adenopathy. Heart size is normal. Great vessels are normal. No pericardial effusion. Abdomen/pelvis: Giant hemangioma again noted in the left lobe of the liver. No enhancing hepatic metastatic disease identified. No bile duct dilatation. Large lamellated gallstones are redemonstrated within the gallbladder. The spleen, pancreas and adrenal glands are within normal limits. Large extrarenal pelvis containing a double-J stent on the left. Left kidney is otherwise unremarkable. Right kidney is stable with a prominent extrarenal pelvis. Stable small retroperitoneal lymph nodes. No obvious new or enlarging pelvic adenopathy. Bladder is slightly thick-walled containing the left-sided stent. Small amount of free pelvic fluid. Prior mass in the left pelvis adjacent to the left ureter is indistinct and cannot be definitively measured, but appears smaller and less dense. Prior hydroureter has resolved. Stable right adnexal or ovarian cyst measuring 2.4 cm in diameter. No evidence of a bowel obstruction. Moderate to large amount of stool in the colon. Bone windows show no lytic or blastic osseous lesions. Impression: New left-sided double-J ureteral stent, otherwise essentially stable exam. No evidence of new or worsening metastatic disease in the chest, abdomen or pelvis. .
[2016-07-02 11:59] LABS: BASOPHILS % (AUTO) 0.3 % (0-2); EOSINOPHILS # (AUTO) 0.1 T/MM3 (0-0.5); EOSINOPHILS % (AUTO) 3.3 % (0-4); HCT - HEMATOCRIT 36.9 % (36-46); LYMPHOCYTES # (AUTO) 0.5 T/MM3 (1-4.8); LYMPHOCYTES % (AUTO) 12.4 % (23-45); MEAN CORPUSCULAR HGB 33.6 UUG (26-34); MEAN CORPUSCULAR HGB CONC(MCHC 32.5 GM/DL (31-37); MEAN CORPUSCULAR VOLUME 103.4 UM3 (80-100); MONOCYTES # (AUTO) 0.2 T/MM3 (0-0.8); MONOCYTES % (AUTO) 5.6 % (0-9.0); NEUTROPHILS #(AUTO)-ABSOLUTE 3.1 T/MM3 (1.8-7.7); NEUTROPHILS % (AUTO) 78.4 % (33-66); RED BLOOD COUNT 3.57 M/MM3 (4.00-5.20)
[2016-07-02 12:08] LABS: ALBUMIN 4.3 G/DL (3.5-5.0); ALBUMIN/GLOBULIN RATIO 1.3 RATIO (1.1-2.2); ALKALINE PHOSPHATASE 70 U/L (38-126); ALT (SGPT) 24 U/L (9-52); ANION GAP 12 MEQ/L (5-15); AST (SGOT) 29 U/L (14-36); BUN/CREATININE RATIO 13 RATIO (6-26); CALCIUM 9.4 MG/DL (8.4-10.2); CHLORIDE 104 MEQ/L (98-107); CO2 - CARBON DIOXIDE 30 MEQ/L (22-30); CREATININE 1.1 MG/DL (0.7-1.2); GLOMERULAR FILTRATION RATE 53; GLUCOSE 94 MG/DL (65-110); SODIUM 146 MEQ/L (134-144); TOTAL PROTEIN 7.6 G/DL (6.3-8.2)
== END ==
LOC: IMA 08:05
PROVIDERS: ATTEND Internal Medicine Medical Oncology
DX: C53.0 Malignant neoplasm of endocervix (principal); Z96.0 Presence of urogenital implants
CPT/HCPCS: 36415; 71260; 74177; 80053; 85025; J7050; Q9967